=== PATIENT | male | born 1950 | race African-American/Black ===

== ENCOUNTER → 2017-05-24 | Outpatient (CLI) | payer OTHER, MEDICARE ==
[~2017-05-24] MED LIST: ACETAMINOPHEN325 M1 PO; ADULT LOW DOSE81 MG PO; ALLOPURINOL 10100 M1; ALLOPURINOL 30300 M2 PO; AMOXICILLIN 50500 M1 PO; APIDRA SUBQ; APIDRA100 U/ML SUBQ; ASPIRIN EC81 M1; AUGMENTIN 875875 MG PO; BENADRYL25 MG PO; CHLORTHALIDONE25 MG PO; EFFIENT10 MG PO; FENOFIBRATE160 MG PO; IMODIUM MULTI-1 EACH; LANTUS SUBQ; LANTUS100 UNIT/M SUBQ; LEVAQUIN 500 M500 M2 PO; LEVEMIR100 UNIT/1 SUBQ; LIPITOR 20 MG T20 M1 PO; LISINOPRIL10 MG PO; LOPERAMIDE 2 MG2 M1 PO; LOPRESSOR 50 MG50 M1 PO; LOPRESSOR50 PO; MECLIZINE HCL25 MG PO; MEDROLDOSEPACK PO; MYCOPHENOLATE PO; MYFORTIC180 MG PO; NITROGLYCERIN0.4 MG SUBLING; NORCO 5-325 TA1 EACH PO; NORVASC10 MG PO; NOVOLOG100 UNIT/M; PIOGLITAZONE30 MG; PLAVIX 75 MG TA75 M1 PO; PREDNISONE 20 M20 MG PO; PROGRAF0.5 MG PO; PROGRAF1 MG; PROGRAF1 MG PO; PROMETHAZINE-C120 ML PO; RANEXA500 MG PO; RANITIDINE 150150 M1 PO; SIMVASTATIN10 MG PO; SODIUM BICARBO650 M3 PO; TACROLIMUS0.5 MG PO; TACROLIMUS1 MG; TACROLIMUS1 MG PO; TOPROL XL50 MG; TOUJEO SOL300 UNIT/1; TRIGLIDE50 MG; TUSSIN CF MAX118 ML PO; VALIUM5 MG PO; VASCEPA1 GM PO; ZYLOPRIM300 MG PO
== END ==
LOC: RAD 14:55
DX: M25.561 Pain in right knee (principal); G89.29 Other chronic pain

== ENCOUNTER 2017-08-23 01:27 | Emergency (ER) | payer OTHER, MEDICARE ==
[~2017-08-23] VITALS: Ht 193 cm; Wt 136.1 kg
--- NOTE | ~2017-08-23 | EKG ---
[address] [address] ELECTROCARDIOGRAM REPORT Name: NICOLASA JOY LILIA [id number] Admission: 08/23/17 Attend Phys: Discharge: 08/23/17 Date of : 50 Report #: [id number] THIS REPORT FOR: //name// [facility] ED Test Date: 2017-08-23 Test Time: 01:30:46 Pat Name: NICOLASA JOY Department: Room: Gender: Wood Scaler: [facility] : 1950 Requested By: Chris Sheldon Order Number: [id number] MD: Hang Sepulveda Measurements Intervals [place] Rate: 66 P: 18 [place]: 156 QRS: 2 QRSD: 114 T: 84 QT: 416 QTc: 436 Interpretive Statements Sinus rhythm Borderline intraventricular conduction delay Abnormal R-wave progression, early transition Minimal ST depression, lateral leads Compared to ECG 03/19/2015 08:00:11 ST (T wave) deviation now present Electronically Signed On 08-23-2017 9:57:35 CDT by Hang Sepulveda [email or web address] <ELECTRONICALLY SIGNED> By: Hang Sepulveda MD 08/23/17 0957 9 9 Hang Sepulveda MD /EPI
[2017-08-23] MEDS ORDERED: ACTOS 30 MG TAB30 M1 PO (01:34)
[2017-08-23] MEDS ORDERED: LIPITOR 20 MG T20 M1 PO (01:35)
[2017-08-23] MEDS ORDERED: ZANTAC 150MG T150 MG PO (01:35)
[2017-08-23] MEDS ORDERED: ASPIR 8181 M1 PO (01:35)
[2017-08-23] MEDS ORDERED: MYFORTIC180 MG PO (01:35)
[2017-08-23] MEDS ORDERED: LOPRESSOR50 PO (01:35)
[2017-08-23] MEDS ORDERED: SODIUM BICARBO650 M3 PO (01:37)
[2017-08-23] MEDS ORDERED: PROGRAF 1 MG1 MG PO (01:37)
[2017-08-23] MEDS ORDERED: CHLORTHALIDONE25 MG PO (01:38)
[2017-08-23] MEDS ORDERED: ALLOPURINOL 30300 M1 PO (01:38)
[2017-08-23] MEDS ORDERED: LEVEMIR SUBQ (01:38)
[2017-08-23] MEDS ORDERED: NOVOLOG100 UNIT/1 (01:39)
[2017-08-23] MEDS ORDERED: PLAVIX 75 MG TA75 M1 PO (01:40)
[2017-08-23 01:57] LABS: HEMATOCRIT 42.4 % (42.0-52.0); HEMOGLOBIN 13.1 gm/dL (14.0-18.0); MCH 27.4 pg (26.0-34.0); MCV 88.4 fL (80.0-100.0); RBC 4.79 mil/uL (4.50-6.00); RDW 16.1 % (10.5-14.5); WBC 4.5 thou/uL (4.0-11.0)
[2017-08-23 02:02] LABS: ANION GAP 6 mmol/L (7-16); BUN 41 mg/dL (7-18); CALCIUM 8.3 mg/dL (8.5-10.1); CHLORIDE 107 mmol/L (98-107); CO2 25 mmol/L (21-32); CREATININE 1.9 mg/dL (0.7-1.3); GLUCOSE 291 mg/dL (74-106); POTASSIUM 4.8 mmol/L (3.5-5.1); SODIUM 138 mmol/L (136-145)
[2017-08-23 02:11] LABS: TROPONIN-I < 0.04 ng/mL (<0.04-0.07)
== END 2017-08-23 03:53 | disposition home or self-care (01) ==
LOC: ER 01:27
PROVIDERS: Emergency Medicine
DX: R06.02 Shortness of breath (principal); I12.9 Hypertensive chronic kidney disease with stage 1 through stage 4 chronic kidney disease, or unspecified chronic kidney disease; E11.22 Type 2 diabetes mellitus with diabetic chronic kidney disease; N18.9 Chronic kidney disease, unspecified; E78.5 Hyperlipidemia, unspecified; Z79.4 Long term (current) use of insulin; Z91.041 Radiographic dye allergy status; Z91.013 Allergy to seafood; Z88.2 Allergy status to sulfonamides; Z88.5 Allergy status to narcotic agent

== ENCOUNTER → 2017-11-16 | Outpatient (CLI) | payer OTHER, MEDICARE ==
[~2017-11-16] MED LIST changes: +ACTOS 30 MG TAB30 M1 PO; +ACTOS 45 MG45 M2 PO; +ALLOPURINOL 30300 M1 PO; +ASPIR 8181 M1 PO; +CEFDINIR300 MG PO; +FLONASE 0.05%50 MCG NASAL; +JARDIANCE10 MG PO; +LEVEMIR SUBQ; +NOVOLOG100 UNIT/1; +NOVOLOG100 UNIT/1 SUBQ; +PROGRAF 1 MG1 MG PO; +SUDOGEST120 MG PO; +TOUJEO SOL300 UNIT/1 SUBQ; +ZANTAC 150MG T150 MG PO
== END ==
LOC: MRI 08:03
DX: M54.16 Radiculopathy, lumbar region (principal); E88.2 Lipomatosis, not elsewhere classified; M47.896 Other spondylosis, lumbar region; M51.26 Other intervertebral disc displacement, lumbar region; M48.061 Spinal stenosis, lumbar region without neurogenic claudication; M51.36 Other intervertebral disc degeneration, lumbar region

== ENCOUNTER → 2018-01-10 | Outpatient (CLI) | payer OTHER, MEDICARE | LOC: RAD 14:14 | DX: M47.892 Other spondylosis, cervical region (principal) ==

== ENCOUNTER 2018-05-30 10:50 | Inpatient (IN) | payer OTHER, MEDICARE ==
[~2018-05-30] VITALS: Ht 193 cm; Wt 133.8 kg
--- NOTE | ~2018-05-30 | HC ---
[facility] [place] [address] [place] [address] CONSULTATION Name: NICOLASA JOY Room #: 422-P [facility] IN M.R.#: [id number] Admission: 05/30/18 Attend Phys: Josse Nobles Discharge: 06/01/18 Date of : 50 Report #: [id number] THIS REPORT FOR: //name// CC: Josse Nobles NO PCP Cari Cordoba REASON FOR CONSULTATION: Kidney transplant. REASON FOR THE PRESENTATION: Nausea, vomiting, abdominal pain and diarrhea of about one-month duration. HISTORY OF PRESENT ILLNESS: A 67-year-old who is well known to me. He is status post cadaveric kidney transplantation back in 2006. He has end-stage renal disease due to diabetes mellitus. He was on dialysis from 2003 until 2006. He received cadaveric kidney transplantation in 2006 at [facility]. He is maintained on dual immunosuppression medications, including Myfortic and Prograf. His baseline creatinine is around 2.0. He had suffered from side effects related to Myfortic and his Myfortic has been given q.i.d. He also had long-standing diabetes mellitus with all of the complications, that included diabetic retinopathy, neuropathy and Charcot joint. It is mentioned that he also had some diabetic gastroparesis and gastric enteropathy. He presented reporting diarrhea with no blood or stool with his bowel movement. This was associated with lower abdominal cramping. He tells me that he previously had extensive workup for his diarrhea after transplantation and this included colonoscopy at [facility]. He was told that this is probably related to his Myfortic. He is being admitted for further evaluation and I am being consulted to manage his renal transplant issues. PAST MEDICAL HISTORY: 1. Status post renal transplantation in 2006. 2. Long-standing diabetes mellitus with all of its complications. 3. Diabetic neuropathy, diabetic nephropathy and diabetic retinopathy. 4. Coronary artery disease post stent in 2003. 5. Hypertension. 6. Chronic kidney disease with a baseline of around 2. 7. Hyperlipidemia. PAST SURGICAL HISTORY: 1. Renal transplant. 2. Back surgery. 3. Left AV fistula. 4. Colonoscopy. ALLERGIES: CODEINE. FAMILY HISTORY: Very strong family history of diabetes mellitus and [facility] [address] [place] [address] CONSULTATION Name: NICOLASA JOYMATTHEWJO Room #: 422-P [facility] IN M.R.#: [id number] Admission: 05/30/18 Attend Phys: Josse Nobles Discharge: 06/01/18 Date of : 50 Report #: [id number] hypertension. SOCIAL HISTORY: No drug or alcohol abuse. 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 REVIEW OF SYSTEMS: GENERAL: No fever or chills. CARDIOVASCULAR: No chest pain or palpitation. PULMONARY: No cough or hemoptysis. GASTROINTESTINAL: As per the history of present illness. GENITOURINARY: No frequency, no dysuria. MUSCULOSKELETAL: No back pain. SKIN: No rashes or ulcerations. MEDICATIONS: 1. Plavix 75 mg daily. 2. Atorvastatin 20 daily. 3. Metoprolol 50 mg daily. 4. Amlodipine 10 mg daily. 5. Lisinopril 10 mg daily. 6. Myfortic 180 mg q.i.d. 7. Tacrolimus 1 mg twice a day. PHYSICAL EXAMINATION: GENERAL: Alert, oriented, in no apparent distress. VITAL SIGNS: Blood pressure 138/62, temperature 36.7. HEAD AND NECK: No jugular venous distention, no bruit, no thyromegaly. CHEST: Clear to auscultation bilaterally. CARDIOVASCULAR: Regular, with no rub detected. ABDOMEN: Soft with slight tenderness in the lower aspects. EXTREMITIES: Lower extremities, no edema. Upper extremities, . LABORATORY DATA: Laboratory values reviewed. White blood cell count 5.3, hemoglobin 13.6. Sodium 139, potassium 5.4, chloride 106, carbon dioxide 23, BUN 41, creatinine 2.0 and glucose mildly elevated at 232. Lipase was within normal. IMAGING: Chest x-ray reviewed, no acute process. ASSESSMENT, IMPRESSION AND PLAN: 1. Status post kidney transplantation. Maintained on dual immunosuppressive medication. 2. Chronic kidney disease. 3. Gastrointestinal illness. 4. Diabetes mellitus. 5. Hypertension. [address] [address] CONSULTATION Name: NICOLASA JOY Room #: 422-P [facility] IN M.R.#: [id number] Admission: 05/30/18 Attend Phys: Josse Nobles Discharge: 06/01/18 Date of : 50 Report #: [id number] 6. From the renal perspective, his creatinine seems to be at baseline. He received some IV fluid yesterday and it is probably that he had some element of dehydration because of his persistent diarrhea. He is maintained on Myfortic 4 times a day and will continue with the same. He is also maintained on the same dose of tacrolimus and we will keep on the same. I will change the frequency of his tacrolimus to twice a day. 7. Blood pressure seems to be under well control. 8. Continue to address his blood sugar. 9. We will continue to follow along. It is possible that his GI symptoms are related to his Myfortic. He is currently taking it q.i.d. He has had extensive GI workup in the past and I will review those with his primary layboy operator, Dr. Argueta. <ELECTRONICALLY SIGNED> By: Alfredo Sigala MD 06/02/18 1558 0830 1112 Alfredo Sigala MD /nt
--- NOTE | ~2018-05-30 | HC ---
[facility] [place] [address] [place] [address] CONSULTATION Name: NICOLASA JOY Room #: 422-P [facility] IN M.R.#: [id number] Admission: 05/30/18 Attend Phys: Josse Nobles Discharge: Date of : 50 Report #: [id number] THIS REPORT FOR: //name// CC: Josse Nobles NO PCP Cari Cordoba DATE OF SERVICE: 05/31/2018 REASON FOR CONSULTATION: Evaluate abdominal pain, diarrhea in the setting of renal transplant. HISTORY OF PRESENT ILLNESS: The patient was a 67-year-old status post cadaveric kidney transplant 2017 on 2-drug immunosuppression with Prograf and Myfortic. His baseline creatinine is 2. He has underlying diabetes. Complains of 1-month history loose stools associated with frequency and lower abdominal pain. Has had some nausea with this, some anorexia. He has had 10 pounds of weight loss. Generally does not feel well. Describes his pain as bilateral lower abdomen. This is a dull ache with low level of discomfort all the time. No crampy abdominal pain. No radicular features into his groin. Discomfort does not change with eating or defecating. Appetite has been poor. No blood in his stool. No mucus being passed. Most recently notes that his stools do have some form to them and are soft. No blood or mucus. Previous workup several years ago for similar issue noted reaction to his Myfortic. The patient has had no travel outside the [place]. 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 Lives with his who has had no gastrointestinal issues. Denies any rejection episodes. He has had no opportunistic infections. Has been on no recent antibiotics. No history of colitis or diverticulitis. PAST MEDICAL HISTORY: Renal transplant, diabetes, peripheral neuropathy, Charcot foot, coronary artery disease, hypertension, left upper extremity AV fistula, hyperlipidemia, lumbar spine surgery. ALLERGIES: CODEINE. MEDICATIONS: As noted on his MAR including Myfortic and Prograf. He has also received 1 dose of Zosyn. Other medications as noted on his MAR. FAMILY HISTORY: Diabetes, hypertension. 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 REVIEW OF SYSTEMS: GENERAL: Fatigue and a 10-pound weight loss. [address] [address] CONSULTATION Name: NICOLASA JOY Room #: 422-P [facility] IN M.R.#: [id number] Admission: 05/30/18 Attend Phys: Josse Nobles Discharge: Date of : 50 Report #: [id number] HEENT: Sinus congestion with postnasal drip. Intermittent clearing of his throat. No hearing issues. No visual changes. No oral lesions or thrush noted. CARDIOVASCULAR: Negative for chest pain or palpitations. No PND or orthopnea. PULMONARY: As noted above with no dyspnea on exertion, pleuritic chest pain. No hemoptysis. GASTROINTESTINAL: As above. GENITOURINARY: No issues with his graft. It is in the right lower quadrant. No dysuria or frequency. No hematuria. No flank pain. MUSCULOSKELETAL: No arthritis or joint swelling. Continues to have intermittent low back pain. SKIN: Without rash or ulcer. No new neurologic issues other than his chronic back pain. No radicular features. No psychiatric issues. Denies any allergies or asthma. PHYSICAL EXAMINATION: VITAL SIGNS: Afebrile and hemodynamically stable. Alert and cooperative, in no acute distress. Sitting on the side of the bed. SKIN: Unremarkable. LYMPH: Unremarkable. EYES: Unremarkable. MOUTH: Unremarkable. Sinuses were nontender. NECK: Supple, no thyromegaly or mass. JVD normal. Carotid upstrokes normal. Left upper extremity AV fistula with thrill and bruit. LUNGS: Clear, without adventitial sounds with good excursions. CARDIOVASCULAR: Heart was regular, without murmur, gallop or rub. ABDOMEN: Obese, soft, mild tenderness in the lower quadrants, greatest on the left with no appreciable mass. Graft within the right lower quadrant was nontender. No hepatosplenomegaly. No CVA tenderness. Mild lower lumbar tenderness to percussion. EXTREMITIES: Unremarkable other than Charcot foot deformity on both feet. Pulses are satisfactory. Decreased sensation in his toes. No other arthritis changes noted. Mood normal. GENITOURINARY: Perianal examination unremarkable. EXTERNAL GENITALIA: Unremarkable. LABORATORY STUDIES: Hemoglobin 13.6, WBC 5.3, platelet count 187,000, 72% segs, 15% lymphs. Sodium 139, potassium 4.4, bicarbonate 27, creatinine 2. Liver function test normal. Albumin at 3.6, lactate 0.7. Urinalysis unremarkable except for 2+ protein. Blood cultures are negative to date. Chest x-ray was clear. This was reviewed and agreed with the interpretation. CT scan of the abdomen and pelvis was reviewed. I agree with the impression. Basilar atelectasis was noted. No definite inflammation around the gallbladder, although he does have gallbladder diverticulum. No other abnormalities in the pelvis. [facility] [address] [place] [address] CONSULTATION Name: NICOLASA JOY Room #: 422-P [facility] IN ..#: [id number] Admission: 05/30/18 Attend Phys: Josse Nobles Discharge: Date of : 50 Report #: [id number] IMPRESSION: A 67-year-old renal transplant patient with 4-week history of lower abdominal discomfort associated with change in bowel habits, now with loose stools. I do not get the sense that we are dealing with inflammatory bowel disease. He has had no blood or mucus. This may more be a reaction to his medications. 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 In addition, has stable kidney function following transplantation. No change in his immunosuppression. No evidence of rejection. Also, has longstanding diabetes and hypertension, controlled. RECOMMENDATION: Check stool studies, sputum culture, image of sinuses and begin treatment with antibiotic therapy, decongestants and nasal spray. By: 1242 1849 Zachary Spence MD /nt
[~2018-05-30 10:50] MED LIST changes: -ACTOS 45 MG45 M2 PO; -CEFDINIR300 MG PO; -FLONASE 0.05%50 MCG NASAL; -JARDIANCE10 MG PO; -NOVOLOG100 UNIT/1 SUBQ; -SUDOGEST120 MG PO; -TOUJEO SOL300 UNIT/1 SUBQ
[2018-05-30 10:54] VITALS: BP 130/65
[2018-05-30 11:19] LABS: ABSOLUTE NEUTROPHILS 3.8 thou/uL (1.4-8.2); BASOPHILS 0.7 % (0.0-2.0); EOSINOPHILS 0.8 % (0.0-3.0); HEMATOCRIT 41.7 % (42.0-52.0); HEMOGLOBIN 13.6 gm/dL (14.0-18.0); LYMPHOCYTES 15.2 % (24.0-44.0); MCH 28.1 pg (26.0-34.0); MCHC 32.5 g/dL (28.0-37.0); MCV 86.6 fL (80.0-100.0); MONOCYTES 10.7 % (1.0-8.0); PLATELET COUNT 187 thou/uL (150-400); POLYS 72.6 % (36.0-66.0); RBC 4.82 mil/uL (4.50-6.00); WBC 5.3 thou/uL (4.0-11.0)
[2018-05-30 11:23] LABS: CALCIUM 9.6 mg/dL (8.5-10.1); CREATININE 2.3 mg/dL (0.7-1.3); POTASSIUM 4.4 mmol/L (3.5-5.1)
[2018-05-30 11:28] LABS: ALBUMIN 3.6 g/dL (3.4-5.0); TOTAL BILIRUBIN 0.5 mg/dL (<0.1-1.0); TOTAL PROTEIN 8.4 g/dL (6.4-8.2)
[2018-05-30 13:03] LABS: URINE BILIRUBIN NEGATIVE (Negative); URINE BLOOD TRACE (Negative); URINE CLARITY CLEAR; URINE COLOR YELLOW; URINE GLUCOSE-RANDOM* NEGATIVE (Negative); URINE KETONES NEGATIVE (Negative); URINE LEUKOCYTES-REFLEX NEGATIVE (Negative); URINE NITRITE-REFLEX NEGATIVE (Negative); URINE PROTEIN (DIPSTICK) 2+ (Negative); URINE UROBILINOGEN 0.2 E.U./dl (0.2-1.0)
[2018-05-30 13:10] LABS: BACTERIA-REFLEX 1-9 Few /HPF (None Seen); CASTS None Seen /LPF (None Seen); CRYSTALS None Seen /LPF (None Seen); SQUAMOUS 0-3 Few /LPF (0-3); URINE RBC None Seen /HPF (0-2); URINE WBC-REFLEX None Seen /HPF (0-5)
[2018-05-30] MEDS ORDERED: NORVASC10 MG PO (13:52)
[2018-05-30 15:48] VITALS: BP 148/80
[2018-05-30 16:30] VITALS: BP 148/56
[2018-05-30] MEDS ORDERED: PROGRAF1 MG PO (17:41)
[2018-05-30] MEDS ORDERED: LISINOPRIL10 MG PO (17:41)
[2018-05-30] MEDS ORDERED: NOVOLOG100 UNIT/1 SUBQ (17:44)
[2018-05-30] MEDS ORDERED: TOUJEO SOL300 UNIT/1 SUBQ (17:45)
[2018-05-30 19:30] VITALS: BP 148/56
[2018-05-31 04:16] VITALS: BP 138/62
[2018-05-31 06:00] LABS: CALCIUM 8.5 mg/dL (8.5-10.1); POTASSIUM 5.4 mmol/L (3.5-5.1)
[2018-05-31 08:04] VITALS: BP 139/75
[2018-05-31 20:21] VITALS: BP 144/60
[2018-05-31 20:23] VITALS: BP 144/60
[2018-06-01 04:02] LABS: ALBUMIN 2.9 g/dL (3.4-5.0); CALCIUM 8.3 mg/dL (8.5-10.1); CREATININE 2.2 mg/dL (0.7-1.3); PHOSPHORUS 2.5 mg/dL (2.5-4.9)
[2018-06-01 04:11] LABS: POTASSIUM 4.4 mmol/L (3.5-5.1)
[2018-06-01 04:13] VITALS: BP 90/37
[2018-06-01 07:29] VITALS: BP 132/82
[2018-06-01] MEDS ORDERED: CEFDINIR300 MG PO (09:48)
[2018-06-01] MEDS ORDERED: SUDOGEST120 MG PO (09:49)
[2018-06-01] MEDS ORDERED: FLONASE 0.05%50 MCG NASAL (09:49)
[2018-06-01 13:39] VITALS: BP 132/82
== END 2018-06-01 14:59 | disposition home or self-care (01) | DRG 391 ==
LOC: ER 10:50 → 4E 14:19 → EROBS 14:19 → 4E 16:43
PROVIDERS: Emergency Medicine; Hospitalist
DX: K52.9 Noninfective gastroenteritis and colitis, unspecified (principal); E43 Unspecified severe protein-calorie malnutrition; Z94.0 Kidney transplant status; N18.9 Chronic kidney disease, unspecified; E11.22 Type 2 diabetes mellitus with diabetic chronic kidney disease; E78.5 Hyperlipidemia, unspecified; M19.90 Unspecified osteoarthritis, unspecified site; M10.9 Gout, unspecified; E11.40 Type 2 diabetes mellitus with diabetic neuropathy, unspecified; E11.319 Type 2 diabetes mellitus with unspecified diabetic retinopathy without macular edema; I25.10 Atherosclerotic heart disease of native coronary artery without angina pectoris; J32.9 Chronic sinusitis, unspecified; Z95.5 Presence of coronary angioplasty implant and graft; Z88.2 Allergy status to sulfonamides; Z88.6 Allergy status to analgesic agent; Z91.041 Radiographic dye allergy status; Z91.013 Allergy to seafood; Z83.3 Family history of diabetes mellitus; Z82.49 Family history of ischemic heart disease and other diseases of the circulatory system; I12.9 Hypertensive chronic kidney disease with stage 1 through stage 4 chronic kidney disease, or unspecified chronic kidney disease
CPT/HCPCS: 10183

== ENCOUNTER → 2018-06-26 | Outpatient (CLI) | payer OTHER, MEDICARE ==
[~2018-06-26] MED LIST changes: +CEFDINIR300 MG PO; +FLONASE 0.05%50 MCG NASAL; +NOVOLOG100 UNIT/1 SUBQ; +SUDOGEST120 MG PO; +TOUJEO SOL300 UNIT/1 SUBQ
== END ==
LOC: NUC 08:30
DX: K81.0 Acute cholecystitis (principal); K83.8 Other specified diseases of biliary tract; K82.8 Other specified diseases of gallbladder; I10 Essential (primary) hypertension; E11.9 Type 2 diabetes mellitus without complications; E78.5 Hyperlipidemia, unspecified; Z95.5 Presence of coronary angioplasty implant and graft

== ENCOUNTER → 2018-09-16 | Outpatient (CLI) | payer OTHER, MEDICARE ==
[~2018-09-16] VITALS: Ht 193 cm; Wt 128.4 kg
[~2018-09-16] MED LIST changes: +ACTOS 45 MG45 M2 PO; +JARDIANCE10 MG PO
--- NOTE | ~2018-09-16 | P ---
[facility] [place] [address] [place] [address] PROCEDURE REPORT Name: NICOLASA JOY Room #: REG [facility].#: [id number] Admission: 09/16/18 Attend Phys: Federico Sarkar MD Discharge: Date of : 50 Report #: [id number] THIS REPORT FOR: //name// CC: Federico Argueta MD BRIEF HISTORY: The patient is a 67-year-old male with recent change in bowel habits and increased stool frequency. He has a history of diabetes and a kidney transplant. PREOPERATIVE DIAGNOSIS: Change in bowel habits. POSTOPERATIVE DIAGNOSIS: Diverticulosis coli, proximal colon. MEDICATIONS: Deep sedation with propofol per anesthesia. SPECIMEN: Random biopsy of colon to rule out colitis. ESTIMATED BLOOD LOSS: 3 mL. PROCEDURE: Colonoscopy to cecum and terminal ileum with biopsy. FINDINGS: Prior to propofol sedation, the procedure of colonoscopy discussed with the patient as well as potential risks and its complications. He states he understands and desires to proceed. DESCRIPTION OF PROCEDURE: With the patient in the left lateral position, digital examination was completed, which revealed no abnormalities. Subsequently, the Olympus video colonoscope was introduced in the rectum, advanced under direct vision to the cecum. Done with minimal difficulty. The cecum was identified by the ileocecal valve and the appendiceal orifice. I was able to visualize the distal segment of the terminal ileum, which was inspected and noted to be unremarkable. At that point, the scope was slowly withdrawn and careful circumferential views obtained. Upon slow withdrawal of the scope, the prep was good. The mucosa was within normal limits. Normal vascular pattern and normal light reflex. As we withdrew the scope, a diverticulum was seen in the cecum. There was no evidence of diverticulitis. As we withdrew the scope through the remainder of the colon, additional diverticula were not seen elsewhere in the colon. In addition, the mucosa was normal throughout the colon. No inflammatory neoplastic changes were seen. Due to his change in bowel habits, multiple biopsies were obtained to evaluate for microscopic colitis. The scope was withdrawn in the rectum and upon retroflexion, no abnormalities were seen. Scope was withdrawn. The patient tolerated the procedure well. [facility] [address] [place] [address] PROCEDURE REPORT Name: NICOLASA JOY LILIA Room #: REG [facility].#: [id number] Admission: 09/16/18 Attend Phys: Federico Sarkar MD Discharge: Date of : 50 Report #: [id number] CONDITION OF THE PATIENT UPON DISCHARGE: Following the procedure, the patient drowsy, aroused, conversant and will be discharged home when fully ambulatory. INSTRUCTIONS TO THE PATIENT AND FAMILY AT THE TIME OF DISCHARGE: No inflammatory neoplastic changes seen. We will follow up on biopsies obtained today. For colorectal screening purposes, suggest return in 10 years. He will otherwise return to the care of Dr. Cari Cordoba and Dr. Argueta. Withdrawal time from cecum was 13 minutes and 8 seconds. <ELECTRONICALLY SIGNED> By: Federico Sarkar MD 09/16/18 1948 1011 1226 Federico Sarkar MD /nt
--- NOTE | ~2018-09-16 | PATH ---
[facility] [place] [address] PATHOLOGY RPT PROCEDURE Name: JAE WHITT Room #: REG [facility].#: [id number] Admission: 09/16/18 Date of : 50 Discharge: Report #: [id number] Path Case #: [id number] [facility] Accession Number: [id number] . 01 Material submitted: . PART A: SMALL BOWEL BX R/O CELIAC DISEASE PART B: GASTRITIS R/O H PYLORI BIOPSY PART C: DISTAL ESOPHAGUS BIOPSY R/O BARRETTS PART D: RANDOM COLON BIOPSIES HX DIARRHEA R/O COLITIS . 01 Clinical history: . Pre-OP DX: History diabetes, Hx diarrhea, change of bowel habits Post-OP DX: Gastritis, hiatal hernia, possible Hernadez's, esophagus, diverticulosis . 02 Diagnosis: A. Small intestinal mucosa "small bowel biopsy": - The small intestinal mucosa does not reveal any diagnostic changes of celiac disease. - However, a detached fragment of colonic mucosa reveals a tubular adenoma without any high-grade dysplasia or malignancy. . B. Gastric biopsy "gastric biopsy": - No obvious diagnostic changes. - The immunoperoxidase stain for Helicobacter pylori is negative. . C. Squamous and glandular mucosa "distal esophageal biopsy": - Mild esophagitis with reactive squamous mucosa. - There is no evidence of goblet cell metaplasia, dysplasia or malignancy. . D. Colonic mucosa "random colon biopsies": - No obvious diagnostic changes. - There is no evidence of acute cryptitis, granulomas, adenomatous change, changes of microscopic colitis or malignancy. (SHA:[facility] 09/17/2018) QTP/09/17/2018 . 02 Electronically signed: . Harry Fuentes MD, Pathologist NPI- [id number] . 01 Gross description: . A. Received in formalin labeled "Jae Whitt, small bowel biopsies, rule out celiac," are multiple segments of singh soft tissue measuring 0.9 x 0.3 x 0.1 cm in aggregate dimensions. The specimen is filtered and entirely submitted in cassette A1. . [address] [address] PATHOLOGY RPT PROCEDURE Name: JAE WHITTMNJO Room #: REG [facility].#: [id number] Admission: 09/16/18 Date of : 50 Discharge: Report #: [id number] Path Case #: [id number] B. Received in formalin labeled "Jae Whitt, gastritis, rule out H. pylori," are multiple segments of singh soft tissue measuring 1.8 x 0.5 x 0.1 cm in aggregate dimensions. The specimen is filtered and entirely submitted in cassette B1. . C. Received in formalin labeled "Jae Whitt, distal esophagus biopsy," is a single segment of singh soft tissue measuring 0.4 cm in maximum dimension. The specimen is entirely submitted in cassette C1. . D. Received in formalin labeled "Jae Whitt, random colon biopsies, rule out colitis," are multiple segments of singh soft tissue measuring 1.4 x 0.5 x 0.1 cm in aggregate dimensions. The specimen is filtered and entirely submitted in cassette D1. (TSD; 09/16/2018) TOB/TOB . 02 Pathologist provided ICD-10: D13.30, K20.9 . 02 CPT . 975068, 277518, 479059, 708605, B15943 Specimen Comment: A courtesy copy of this report has been sent to Specimen Comment: [phone], . Specimen Comment: Report sent to / DR REYES Specimen Comment: A duplicate report has been generated due to demographic updates. Performed at: 01 [facility] [address] [place] [address] [address], [place], [place] [id number] MD Daniel Ramos MD Phone: [phone] Performed at: [address] [facility] [id number] MD Cynthia Billings MD Phone: [phone]
--- NOTE | ~2018-09-16 | P ---
[facility] [place] [address] [place] [address] PROCEDURE REPORT Name: NICOLASA JOYABEBE Room #: REG [facility]#: [id number] Admission: 09/16/18 Attend Phys: Federico Sarkar MD Discharge: Date of : 50 Report #: [id number] THIS REPORT FOR: //name// CC: Federico Argueta MD DATE OF SERVICE: 09/16/2018 BRIEF HISTORY: The patient is a 67-year-old male with a history of diabetes. He has recently had problems with change in bowel habits and increased stool frequency. He also has bouts of nausea. He does have heartburn symptoms. PREOPERATIVE DIAGNOSES: Diarrhea, nausea and reflux. POSTOPERATIVE DIAGNOSES: 1. Moderately severe diffuse gastritis. 2. Small intermittently seen sliding type hiatus hernia. 3. Question of island of Hernadez distal esophagus. ESTIMATED BLOOD LOSS: 3 mL. PROCEDURE: EGD with biopsy. FINDINGS: Prior to propofol sedation, the procedure of upper endoscopy discussed with the patient as well as potential risks and its complications. He indicates he understands and desires to proceed. DESCRIPTION OF PROCEDURE: With the patient in left lateral decubitus position, the Olympus video endoscope was inserted in the cervical esophagus under direct vision without difficulty. Examination of this organ through its entire length revealed normal esophageal mucosa down the squamocolumnar junction. Squamocolumnar junction was unremarkable. However, about 1-2 cm above the squamocolumnar junction was a 1-cm island of gastric type mucosa raising the possibility of Hernadez mucosa. No other areas of Hernadez were seen. The mucosa was flat. There were no nodules or ulcers. Biopsies obtained of the suspected Hernadez mucosa. Scope was advanced into the stomach, was examined on end view as well as retroflexed views. There was a diffuse erythematous gastritis. No ulcers or erosions were seen. Upon retroflexion, no abnormalities were seen. The pylorus, duodenal bulb, and postbulbar sweep were all inspected and noted to be unremarkable. Biopsies were obtained to evaluate for celiac disease in view of his diabetes and increased stool frequency. We also obtained biopsy of the gastritis. The patient tolerated the procedure well. CONDITION OF THE PATIENT UPON DISCHARGE: Following procedure, the patient [address] [address] PROCEDURE REPORT Name: NICOLASA JOY LILIA Room #: REG [facility].#: [id number] Admission: 09/16/18 Attend Phys: Federico Sarkar MD Discharge: Date of : 50 Report #: [id number] drowsy. He was then prepared for colonoscopy. INSTRUCTIONS TO THE PATIENT AND FAMILY AT THE TIME OF DISCHARGE: The patient has had a kidney transplant. He is currently using ranitidine. Advised him to continue and plans are to avoid nonsteroidals in view of his kidney transplant and kidney disease. We will follow up on biopsies and make further recommendations. Proceed with colonoscopy at this time. <ELECTRONICALLY SIGNED> By: Federico Sarkar MD 09/17/18 0732 0941 0003 Federico Sarkar MD /nt
== END | disposition home or self-care (01) ==
LOC: GI 09-09 15:45
DX: K57.30 Diverticulosis of large intestine without perforation or abscess without bleeding (principal); K29.70 Gastritis, unspecified, without bleeding; D13.30 Benign neoplasm of unspecified part of small intestine; K21.0 Gastro-esophageal reflux disease with esophagitis; K44.9 Diaphragmatic hernia without obstruction or gangrene; I12.9 Hypertensive chronic kidney disease with stage 1 through stage 4 chronic kidney disease, or unspecified chronic kidney disease; E11.22 Type 2 diabetes mellitus with diabetic chronic kidney disease; E78.5 Hyperlipidemia, unspecified; N18.9 Chronic kidney disease, unspecified; M19.90 Unspecified osteoarthritis, unspecified site; E78.00 Pure hypercholesterolemia, unspecified; Z79.82 Long term (current) use of aspirin; Z98.890 Other specified postprocedural states; Z95.5 Presence of coronary angioplasty implant and graft; Z88.6 Allergy status to analgesic agent; Z91.041 Radiographic dye allergy status; Z98.41 Cataract extraction status, right eye; Z79.899 Other long term (current) drug therapy; Z98.42 Cataract extraction status, left eye; Z94.0 Kidney transplant status; Z79.4 Long term (current) use of insulin
CPT/HCPCS: 62110; 62900

== ENCOUNTER → 2020-03-30 | Outpatient (CLI) | payer OTHER, MEDICARE | LOC: SJCVC 11:22 | PROVIDERS: ATTEND Internal Medicine Cardiovascular Disease | DX: I25.10 Atherosclerotic heart disease of native coronary artery without angina pectoris (principal); I12.9 Hypertensive chronic kidney disease with stage 1 through stage 4 chronic kidney disease, or unspecified chronic kidney disease; E11.22 Type 2 diabetes mellitus with diabetic chronic kidney disease; N18.4 Chronic kidney disease, stage 4 (severe); E78.00 Pure hypercholesterolemia, unspecified; E78.1 Pure hyperglyceridemia; M10.9 Gout, unspecified; M19.90 Unspecified osteoarthritis, unspecified site; Z79.82 Long term (current) use of aspirin; Z79.899 Other long term (current) drug therapy; Z79.4 Long term (current) use of insulin ==

== ENCOUNTER → 2020-09-15 | Outpatient (CLI) | payer OTHER, MEDICARE | LOC: RAD 09:43 | PROVIDERS: ATTEND Nurse Practitioner Adult Health | DX: R19.5 Other fecal abnormalities (principal); M47.816 Spondylosis without myelopathy or radiculopathy, lumbar region ==

== ENCOUNTER → 2020-09-27 | Outpatient (CLI) | payer OTHER, MEDICARE | LOC: SJCVCIMAG 09:41 → SJCVC 09:41 | PROVIDERS: ATTEND Internal Medicine Cardiovascular Disease | DX: I65.23 Occlusion and stenosis of bilateral carotid arteries (principal); R94.31 Abnormal electrocardiogram [ECG] [EKG]; I25.10 Atherosclerotic heart disease of native coronary artery without angina pectoris; M14.60 Charcot's joint, unspecified site; E11.69 Type 2 diabetes mellitus with other specified complication; E11.22 Type 2 diabetes mellitus with diabetic chronic kidney disease; I12.9 Hypertensive chronic kidney disease with stage 1 through stage 4 chronic kidney disease, or unspecified chronic kidney disease; N18.4 Chronic kidney disease, stage 4 (severe); I42.9 Cardiomyopathy, unspecified; E78.00 Pure hypercholesterolemia, unspecified; Z94.89 Other transplanted organ and tissue status; Z79.4 Long term (current) use of insulin; Z79.899 Other long term (current) drug therapy ==

== ENCOUNTER → 2020-11-24 | Outpatient (CLI) | payer OTHER, MEDICARE | LOC: SJCVCIMAG 10:53 | PROVIDERS: ATTEND Family Medicine | DX: I73.9 Peripheral vascular disease, unspecified (principal); S81.801S Unspecified open wound, right lower leg, sequela; I25.10 Atherosclerotic heart disease of native coronary artery without angina pectoris; E11.9 Type 2 diabetes mellitus without complications; G62.9 Polyneuropathy, unspecified; M79.605 Pain in left leg; M79.604 Pain in right leg; L97.819 Non-pressure chronic ulcer of other part of right lower leg with unspecified severity; X58.XXXD Exposure to other specified factors, subsequent encounter ==

== ENCOUNTER → 2020-11-29 | Outpatient (CLI) | payer OTHER, MEDICARE | LOC: HYPER 08:38 | PROVIDERS: ATTEND Emergency Medicine Emergency Medical Services | DX: E11.622 Type 2 diabetes mellitus with other skin ulcer (principal); L97.811 Non-pressure chronic ulcer of other part of right lower leg limited to breakdown of skin; S81.801D Unspecified open wound, right lower leg, subsequent encounter; E11.42 Type 2 diabetes mellitus with diabetic polyneuropathy; E11.51 Type 2 diabetes mellitus with diabetic peripheral angiopathy without gangrene; E11.610 Type 2 diabetes mellitus with diabetic neuropathic arthropathy; E11.22 Type 2 diabetes mellitus with diabetic chronic kidney disease; I12.9 Hypertensive chronic kidney disease with stage 1 through stage 4 chronic kidney disease, or unspecified chronic kidney disease; N18.9 Chronic kidney disease, unspecified; E66.9 Obesity, unspecified; I25.10 Atherosclerotic heart disease of native coronary artery without angina pectoris; I42.9 Cardiomyopathy, unspecified; M10.9 Gout, unspecified; M19.90 Unspecified osteoarthritis, unspecified site; Z79.82 Long term (current) use of aspirin; Z68.35 Body mass index [BMI] 35.0-35.9, adult; Z94.0 Kidney transplant status; Z79.4 Long term (current) use of insulin; X58.XXXD Exposure to other specified factors, subsequent encounter ==

== ENCOUNTER → 2020-12-06 | Outpatient (CLI) | payer OTHER, MEDICARE | LOC: HYPER 14:38 | PROVIDERS: ATTEND Emergency Medicine | DX: E11.622 Type 2 diabetes mellitus with other skin ulcer (principal); L97.811 Non-pressure chronic ulcer of other part of right lower leg limited to breakdown of skin; S81.801D Unspecified open wound, right lower leg, subsequent encounter; E11.42 Type 2 diabetes mellitus with diabetic polyneuropathy; E11.51 Type 2 diabetes mellitus with diabetic peripheral angiopathy without gangrene; E11.610 Type 2 diabetes mellitus with diabetic neuropathic arthropathy; E11.22 Type 2 diabetes mellitus with diabetic chronic kidney disease; I12.9 Hypertensive chronic kidney disease with stage 1 through stage 4 chronic kidney disease, or unspecified chronic kidney disease; N18.9 Chronic kidney disease, unspecified; E66.9 Obesity, unspecified; I25.10 Atherosclerotic heart disease of native coronary artery without angina pectoris; I42.9 Cardiomyopathy, unspecified; M10.9 Gout, unspecified; M19.90 Unspecified osteoarthritis, unspecified site; Z68.35 Body mass index [BMI] 35.0-35.9, adult; Z94.0 Kidney transplant status; Z79.4 Long term (current) use of insulin; X58.XXXD Exposure to other specified factors, subsequent encounter ==

== ENCOUNTER 2020-12-30 16:36 | Emergency (ER) | payer OTHER, MEDICARE ==
[~2020-12-30] VITALS: Ht 193 cm; Wt 117.9 kg
[2020-12-30 19:22] LABS: URINE BILIRUBIN NEGATIVE (Negative); URINE BLOOD NEGATIVE (Negative); URINE CLARITY CLEAR; URINE COLOR YELLOW; URINE GLUCOSE-RANDOM* NEGATIVE (Negative); URINE KETONES NEGATIVE (Negative); URINE LEUKOCYTES-REFLEX NEGATIVE (Negative); URINE NITRITE-REFLEX NEGATIVE (Negative); URINE PROTEIN (DIPSTICK) 2+ (Negative); URINE UROBILINOGEN 0.2 E.U./dl (0.2-1.0)
[2020-12-30 19:42] LABS: BACTERIA-REFLEX 1-9 Few /HPF (None Seen); CASTS None Seen /LPF (None Seen); CRYSTALS None Seen /LPF (None Seen); SQUAMOUS 0-3 Few /LPF (0-3); URINE RBC 0-2 Rare /HPF (0-2); URINE WBC-REFLEX 0-5 Rare /HPF (0-5)
[2020-12-30 20:25] LABS: ABSOLUTE NEUTROPHILS 2.3 thou/uL (1.4-8.2); BASOPHILS 0.2 % (0.0-2.0); EOSINOPHILS 1.2 % (0.0-3.0); HEMATOCRIT 35.7 % (42.0-52.0); HEMOGLOBIN 10.8 gm/dL (14.0-18.0); LYMPHOCYTES 14.9 % (24.0-44.0); MCHC 30.3 g/dL (28.0-37.0); MCV 89.1 fL (80.0-100.0); MONOCYTES 13.8 % (1.0-8.0); POLYS 69.9 % (36.0-66.0); RBC 4.01 mil/uL (4.50-6.00); RDW 16.9 % (10.5-14.5); WBC 3.3 thou/uL (4.0-11.0)
[2020-12-30 20:33] LABS: CREATININE 2.1 mg/dL (0.7-1.3); POTASSIUM 5.2 mmol/L (3.5-5.1)
[2020-12-30 20:38] LABS: ALBUMIN 3.7 g/dL (3.4-5.0); TOTAL BILIRUBIN 0.5 mg/dL (0.2-1.0); TOTAL PROTEIN 7.3 g/dL (6.4-8.2)
[2020-12-30] MEDS ORDERED: KEFLEX500 M1 PO (21:06)
[2020-12-30] MEDS ORDERED: MIRALAX119 GM PO (21:09)
[2020-12-30] MEDS ORDERED: TORSEMIDE5 MG PO (21:19)
[2020-12-30] MEDS ORDERED: TOUJEO SOL300 UNIT/1 SUBQ (21:20)
[2020-12-30 21:36] VITALS: BP 159/80
[2020-12-30 21:57] LABS: ANISOCYTOSIS 1+; PLATELET COUNT 112 thou/uL (150-400); PLATELET ESTIMATE DECREASED; POIKILOCYTOSIS 1+
== END 2020-12-30 22:10 | disposition home or self-care (01) ==
LOC: ER 16:36
PROVIDERS: Physician Assistant
DX: K59.00 Constipation, unspecified (principal); K52.9 Noninfective gastroenteritis and colitis, unspecified; K42.9 Umbilical hernia without obstruction or gangrene; K21.9 Gastro-esophageal reflux disease without esophagitis; E78.5 Hyperlipidemia, unspecified; M10.9 Gout, unspecified; E11.22 Type 2 diabetes mellitus with diabetic chronic kidney disease; I12.9 Hypertensive chronic kidney disease with stage 1 through stage 4 chronic kidney disease, or unspecified chronic kidney disease; N18.9 Chronic kidney disease, unspecified; Z79.899 Other long term (current) drug therapy; Z79.4 Long term (current) use of insulin; Z79.82 Long term (current) use of aspirin; Z88.5 Allergy status to narcotic agent; Z91.013 Allergy to seafood; Z91.041 Radiographic dye allergy status

== ENCOUNTER → 2021-04-13 | Outpatient (CLI) | payer OTHER, MEDICARE ==
[~2021-04-13] MED LIST changes: +KEFLEX500 M1 PO; +MIRALAX119 GM PO; +TORSEMIDE5 MG PO
== END ==
LOC: SJCVC 13:01
PROVIDERS: ATTEND Internal Medicine Cardiovascular Disease
DX: I25.10 Atherosclerotic heart disease of native coronary artery without angina pectoris (principal); I12.9 Hypertensive chronic kidney disease with stage 1 through stage 4 chronic kidney disease, or unspecified chronic kidney disease; E11.22 Type 2 diabetes mellitus with diabetic chronic kidney disease; N18.4 Chronic kidney disease, stage 4 (severe); I42.9 Cardiomyopathy, unspecified; M10.9 Gout, unspecified; M19.90 Unspecified osteoarthritis, unspecified site; E78.00 Pure hypercholesterolemia, unspecified; Z94.0 Kidney transplant status; Z79.4 Long term (current) use of insulin; Z79.82 Long term (current) use of aspirin; Z79.899 Other long term (current) drug therapy; Z88.5 Allergy status to narcotic agent; Z88.2 Allergy status to sulfonamides; Z91.013 Allergy to seafood

== ENCOUNTER → 2021-08-31 | Outpatient (CLI) | payer OTHER, MEDICARE ==
[2021-08-31 13:22] LABS: HEMOGLOBIN 10.9 gm/dL (14.0-18.0); WBC 2.5 thou/uL (4.0-11.0)
[2021-08-31 13:25] LABS: ABSOLUTE RETIC COUNT 0.0382 10^6/uL; HEMATOCRIT 35.4 % (42.0-52.0); MCH 27.3 pg (26.0-34.0); MCHC 30.7 g/dL (28.0-37.0); MCV 88.8 fL (80.0-100.0); OBSERVED RETIC COUNT 0.96 % (0.6-2.6); RBC 3.99 mil/uL (4.50-6.00); RDW 15.9 % (10.5-14.5)
[2021-08-31 13:47] LABS: ALBUMIN 3.8 g/dL (3.4-5.0); ANION GAP 7 mmol/L (7-16); BUN 36 mg/dL (7-18); CALCIUM 8.9 mg/dL (8.5-10.1); CHLORIDE 110 mmol/L (98-107); CO2 26 mmol/L (21-32); CREATININE 1.9 mg/dL (0.7-1.3); GLUCOSE 127 mg/dL (74-106); POTASSIUM 5.1 mmol/L (3.5-5.1); SGOT 19 U/L (15-37); SGPT 16 U/L (30-65); SODIUM 143 mmol/L (136-145); TOTAL BILIRUBIN 0.5 mg/dL (0.2-1.0); TOTAL PROTEIN 7.2 g/dL (6.4-8.2)
[2021-08-31 14:13] LABS: FOLIC ACID 13.5 ng/mL (8.6-58.9)
[2021-08-31 14:55] LABS: ABSOLUTE NEUTROPHILS 1.7 thou/uL (1.4-8.2); PLATELET COUNT 99 thou/uL (150-400)
[2021-08-31 14:57] LABS: LARGE PLATELETS RARE
[2021-08-31 15:57] LABS: % SATURATION 24 % (20-39); IRON 56 ug/dL (65-175); TIBC 234 ug/dL (250-450)
[2021-09-01 02:06] LABS: HEMOGLOBIN 10.9 g/dL (13.0-17.7)
[2021-09-01 04:07] LABS: HAPTOGLOBIN 128 mg/dL (32-363)
[2021-09-01 05:07] LABS: TESTOSTERONE* 356 ng/dL (264-916)
[2021-09-01 15:08] LABS: IgA 113 mg/dL (61-437); IgG 1403 mg/dL (603-1613); IgM 40 mg/dL (20-172)
[2021-09-02 11:09] LABS: ANTI-DNA SCREEN <1 IU/mL (0-9); ANTI-RNP <0.2 AI (0.0-0.9)
[2021-09-02 12:07] LABS: KAPPA FREE LIGHT CHAINS 153.1 mg/L (3.3-19.4); KAPPA/LAMBDA RATIO 4.02 (0.26-1.65); LAMBDA FREE LIGHT CHAINS 38.1 mg/L (5.7-26.3)
[2021-09-02 15:08] LABS: M-SPIKE 0.4 g/dL (Not Observed)
[2021-09-04 07:07] LABS: FREE TESTOSTERONE 5.2 pg/mL (6.6-18.1)
[2021-09-05 23:06] LABS: CYCLIC CITRULLINATED PEPTIDE 6 units (0-19)
== END ==
LOC: LAB 10:58
PROVIDERS: ATTEND Internal Medicine
DX: D63.1 Anemia in chronic kidney disease (principal); I10 Essential (primary) hypertension

== ENCOUNTER → 2021-09-06 | Outpatient (CLI) | payer OTHER, MEDICARE | LOC: SJCVCIMAG 08-23 07:42 | PROVIDERS: ATTEND Internal Medicine Cardiovascular Disease | DX: I34.0 Nonrheumatic mitral (valve) insufficiency (principal); I49.3 Ventricular premature depolarization; R51.9 Headache, unspecified; R06.00 Dyspnea, unspecified; I25.10 Atherosclerotic heart disease of native coronary artery without angina pectoris; E78.00 Pure hypercholesterolemia, unspecified; E11.22 Type 2 diabetes mellitus with diabetic chronic kidney disease; I12.9 Hypertensive chronic kidney disease with stage 1 through stage 4 chronic kidney disease, or unspecified chronic kidney disease; N18.4 Chronic kidney disease, stage 4 (severe); Z79.4 Long term (current) use of insulin; I42.9 Cardiomyopathy, unspecified; M19.90 Unspecified osteoarthritis, unspecified site; L97.828 Non-pressure chronic ulcer of other part of left lower leg with other specified severity; L97.818 Non-pressure chronic ulcer of other part of right lower leg with other specified severity; Z82.49 Family history of ischemic heart disease and other diseases of the circulatory system; Z88.5 Allergy status to narcotic agent; Z88.2 Allergy status to sulfonamides; Z88.8 Allergy status to other drugs, medicaments and biological substances; Z79.899 Other long term (current) drug therapy ==

== ENCOUNTER → 2021-09-06 | Outpatient (CLI) | payer OTHER, MEDICARE | LOC: HYPER 07:55 | PROVIDERS: ATTEND Specialist | DX: E11.622 Type 2 diabetes mellitus with other skin ulcer (principal); I87.311 Chronic venous hypertension (idiopathic) with ulcer of right lower extremity; I70.238 Atherosclerosis of native arteries of right leg with ulceration of other part of lower leg; L97.812 Non-pressure chronic ulcer of other part of right lower leg with fat layer exposed; S81.801D Unspecified open wound, right lower leg, subsequent encounter; E11.69 Type 2 diabetes mellitus with other specified complication; I25.10 Atherosclerotic heart disease of native coronary artery without angina pectoris; E11.51 Type 2 diabetes mellitus with diabetic peripheral angiopathy without gangrene; E11.40 Type 2 diabetes mellitus with diabetic neuropathy, unspecified; E11.22 Type 2 diabetes mellitus with diabetic chronic kidney disease; I12.9 Hypertensive chronic kidney disease with stage 1 through stage 4 chronic kidney disease, or unspecified chronic kidney disease; N18.9 Chronic kidney disease, unspecified; M10.9 Gout, unspecified; E66.9 Obesity, unspecified; Z68.34 Body mass index [BMI] 34.0-34.9, adult; Z79.4 Long term (current) use of insulin; Z79.82 Long term (current) use of aspirin; Z79.899 Other long term (current) drug therapy; Z98.890 Other specified postprocedural states; Z94.0 Kidney transplant status; X58.XXXD Exposure to other specified factors, subsequent encounter ==

== ENCOUNTER → 2021-09-12 | Outpatient (CLI) | payer OTHER, MEDICARE | LOC: SJCVCIMAG 07:52 | PROVIDERS: ATTEND Internal Medicine Cardiovascular Disease | DX: L97.818 Non-pressure chronic ulcer of other part of right lower leg with other specified severity (principal); L97.828 Non-pressure chronic ulcer of other part of left lower leg with other specified severity; E11.9 Type 2 diabetes mellitus without complications; J32.9 Chronic sinusitis, unspecified; I25.10 Atherosclerotic heart disease of native coronary artery without angina pectoris; I12.9 Hypertensive chronic kidney disease with stage 1 through stage 4 chronic kidney disease, or unspecified chronic kidney disease; N18.4 Chronic kidney disease, stage 4 (severe); M19.90 Unspecified osteoarthritis, unspecified site; E78.00 Pure hypercholesterolemia, unspecified; E78.5 Hyperlipidemia, unspecified; Z68.34 Body mass index [BMI] 34.0-34.9, adult ==

== ENCOUNTER → 2021-09-13 | Outpatient (CLI) | payer OTHER, MEDICARE | LOC: HYPER 08:53 | PROVIDERS: ATTEND Specialist | DX: E11.622 Type 2 diabetes mellitus with other skin ulcer (principal); I87.311 Chronic venous hypertension (idiopathic) with ulcer of right lower extremity; I70.238 Atherosclerosis of native arteries of right leg with ulceration of other part of lower leg; L97.812 Non-pressure chronic ulcer of other part of right lower leg with fat layer exposed; S81.801D Unspecified open wound, right lower leg, subsequent encounter; E11.69 Type 2 diabetes mellitus with other specified complication; I25.10 Atherosclerotic heart disease of native coronary artery without angina pectoris; E11.610 Type 2 diabetes mellitus with diabetic neuropathic arthropathy; E11.51 Type 2 diabetes mellitus with diabetic peripheral angiopathy without gangrene; E11.40 Type 2 diabetes mellitus with diabetic neuropathy, unspecified; E11.22 Type 2 diabetes mellitus with diabetic chronic kidney disease; I12.9 Hypertensive chronic kidney disease with stage 1 through stage 4 chronic kidney disease, or unspecified chronic kidney disease; N18.9 Chronic kidney disease, unspecified; M10.9 Gout, unspecified; E66.9 Obesity, unspecified; I42.9 Cardiomyopathy, unspecified; Z68.34 Body mass index [BMI] 34.0-34.9, adult; Z79.4 Long term (current) use of insulin; Z79.82 Long term (current) use of aspirin; Z94.0 Kidney transplant status; X58.XXXD Exposure to other specified factors, subsequent encounter ==

== ENCOUNTER → 2021-09-19 | Outpatient (CLI) | payer OTHER, MEDICARE ==
[~2021-09-19] MED LIST changes: +FLONASE 0.05%50 MCG NARES; +TOPROL XL100 MG PO
[2021-09-19 12:32] LABS: URINE PROTEIN (MG/DL) 58.2 mg/dL
[2021-09-21 13:57] LABS: COLLECTION DURATION 24 hours; TOTAL VOLUME 2200 mL
== END ==
LOC: LAB 09:35
PROVIDERS: ATTEND Internal Medicine
DX: D47.2 Monoclonal gammopathy (principal)

== ENCOUNTER → 2021-12-27 | Outpatient (CLI) | payer OTHER, MEDICARE | LOC: SJCVC 11:07 | PROVIDERS: ATTEND Internal Medicine Cardiovascular Disease | DX: R94.31 Abnormal electrocardiogram [ECG] [EKG] (principal); I25.10 Atherosclerotic heart disease of native coronary artery without angina pectoris; I12.9 Hypertensive chronic kidney disease with stage 1 through stage 4 chronic kidney disease, or unspecified chronic kidney disease; E11.22 Type 2 diabetes mellitus with diabetic chronic kidney disease; N18.4 Chronic kidney disease, stage 4 (severe); Z79.4 Long term (current) use of insulin; E78.00 Pure hypercholesterolemia, unspecified; E11.69 Type 2 diabetes mellitus with other specified complication; I25.5 Ischemic cardiomyopathy; R60.9 Edema, unspecified; Z94.89 Other transplanted organ and tissue status; Z98.890 Other specified postprocedural states; Z79.82 Long term (current) use of aspirin; Z79.899 Other long term (current) drug therapy; Z88.5 Allergy status to narcotic agent; Z88.1 Allergy status to other antibiotic agents; Z88.8 Allergy status to other drugs, medicaments and biological substances ==